=== PATIENT | female | born 1955 | race Caucasian/White ===

== ENCOUNTER 2017-10-12 18:00 | Outpatient (CLI) | payer OTHER ==
[2014-01-12 05:25] VITALS: BMI 43.7
[~2017-10-12 18:00] MED LIST: HCTZ25 MG PO; LODINE XL400 MG PO
== END 2017-10-12 23:59 | disposition home or self-care (01) ==
LOC: D.MAMMO 18:00
DX: Z12.31 Encounter for screening mammogram for malignant neoplasm of breast (principal)

== ENCOUNTER 2020-06-14 11:30 | Day surgery (SDC) | payer MEDICARE, OTHER ==
[~2020-06-14] VITALS: Ht 162.6 cm; Wt 140.5 kg
[2020-06-14] MEDS ORDERED: ULTRAM50 MG PO (12:28)
[2020-06-14 12:31] VITALS: BP 150/73; Ht 162.6 cm; Wt 140.5 kg
--- NOTE | 2020-06-14 14:11 | NUR ---
1410 DR. ROSS HUNTER.
[2020-06-14 14:23] LABS: HEMATOCRIT 41.7 % (36.0-48.0); MCH 31.9 pg (26.0-34.0); MCHC 33.6 g/dL (31.0-37.0); MEAN PLATELET VOLUME 9.3 fL (7.4-10.4); RBC 4.39 10x6/uL (4.00-5.40); RDW 14.2 % (11.5-14.5); WBC 7.4 10x3/uL (4.8-10.8)
--- NOTE | 2020-06-14 17:16 | OP ---
PATIENT NAME: GRACIELA ROSADO MEDICAL RECORD: [id number] :51 LOCATION:[facility] ADMISSION DATE: SURGEON: LIZET HAWKINS DO DATE OF OPERATION: 06/14/2020 PROCEDURE: Colonoscopy with polypectomy. INDICATION FOR THE PROCEDURE: Screening for colorectal cancer. SCOPE: Olympus video pediatric colonoscope. MEDICATIONS: Propofol 360 mg IV per anesthesia. WITHDRAWAL TIME: 14 minutes. ESTIMATED BLOOD LOSS: Minimal. COMPLICATIONS: None. FINDINGS: Informed consent was given. The patient was made comfortable with the above medication. After reaching an adequate level of sedation by slow IV push, the patient was placed on her left side. A digital rectal examination was performed and it was normal. The endoscope was advanced under direct visualization through the rectum to the cecum, confirmed by the presence of the appendiceal orifice and ileocecal valve. The endoscope was slowly withdrawn. Mucosa was carefully examined. The prep quality was good. There were 6 polyps visualized on today's examination in total. Two were located in the rectum. They were benign appearing and sessile and ranged in size from 2-3 mm in diameter. They were both removed using hot forceps. In the transverse colon, there were two separate benign-appearing polyps, which ranged in size from 4 mm-7 mm in diameter. They were both removed using a hot snare. In the cecum, there was a benign-appearing sessile polyp, which measured approximately 2 mm in diameter that was removed using a hot forceps. In the ascending colon, there was a benign-appearing sessile polyp, which measured approximately 4 mm in diameter, which was removed using a hot snare. There were no diverticula visualized on today's examination. There were grade I internal hemorrhoids visualized upon retroflexion within the rectum. The endoscope was withdrawn from the patient. The patient tolerated the procedure well and there were no complications. IMPRESSION: 1. Grade I internal hemorrhoids without bleeding. 2. Multiple polyps as described above, removed using a combination of a hot snare and hot forceps. PLAN AND RECOMMENDATIONS: 1. Discharge home when recovery parameters are met. 2. Follow up biopsy specimen results. 3. High fiber diet. 4. Continue current medications. 5. Recall colonoscopy in 3 years. TRANSINT:[id number] Voice Confirmation ID: [id number] DOCUMENT ID: [id number] OPERATIVE REPORT [id number] ROSADO,GRACIELALIZET ESPINOZA DO at 1716 CC: [id number] DICTATION DATE: 06/14/20 1405 GLASS[employer] ENGRAVER: 06/14/20 1654 [facility] 06/14/20 [facility] [address] [id number]
== END 2020-06-14 14:43 | disposition home or self-care (01) ==
LOC: D.OPS 11:30
PROVIDERS: Anesthesiology; ATTEND Internal Medicine Gastroenterology
DX: Z12.11 Encounter for screening for malignant neoplasm of colon (principal); K63.5 Polyp of colon; K64.0 First degree hemorrhoids